=== PATIENT | male | born 1945 | race Caucasian/White ===

== ENCOUNTER 2021-11-24 11:10 | Day surgery (SDC) | payer MEDICARE ==
[~2021-11-24] VITALS: Ht 175.3 cm; Wt 56.1 kg
[2021-11-24] MEDS ORDERED: normal saline 1000ml 1,000 ML IV PRN (11:35)
[2021-11-24 11:45] VITALS: BP 126/77
[2021-11-24] MEDS ORDERED: LEVO112T5 PO (12:02)
[2021-11-24] MEDS ORDERED: AMLO2.5T5 PO (12:02)
[2021-11-24] MEDS ORDERED: OXYCODONE PO (12:02)
[2021-11-24] MEDS ORDERED: TIOT4MIS3 INH (12:02)
[2021-11-24] MEDS ORDERED: heparin sodium, porcine/PF 100unit/ml 5ML syringe ONE (13:37)
[2021-11-24] MEDS ORDERED: LIDOcaine 1%/PF 5ML 10 MG/ML VIAL ONE (13:37)
[2021-11-24] MEDS ORDERED: fentaNYL/PF 50MCG/1 ML 2ML syringe ONE (13:38)
[2021-11-24] MEDS ORDERED: midazolam 1 mg/ML 2ml injection ONE (13:38)
[2021-11-24 14:48] VITALS: BP 120/69
[2021-11-24 15:03] VITALS: BP 140/71
[2021-11-24 15:18] VITALS: BP 139/67
[2021-11-24 15:32] VITALS: BP 137/68
[2021-11-24 15:42] VITALS: BP 129/59
== END 2021-11-24 15:57 | disposition home or self-care (01) ==
LOC: SSTAY O 11:10
PROVIDERS: ATTEND Radiology Vascular & Interventional Radiology
DX: C15.4 Malignant neoplasm of middle third of esophagus (principal); I10 Essential (primary) hypertension; J44.9 Chronic obstructive pulmonary disease, unspecified; Z98.890 Other specified postprocedural states; Z79.899 Other long term (current) drug therapy; Z91.018 Allergy to other foods; Z87.891 Personal history of nicotine dependence; Z77.090 Contact with and (suspected) exposure to asbestos; Z99.81 Dependence on supplemental oxygen
CPT/HCPCS: 36561; 76937; 77001; 99152; 99153; C1769; C1788; C1894; J1642; J2250; J3010; J3490